=== PATIENT | female | born 1980 | race Caucasian/White ===

== ENCOUNTER 2017-11-24 04:58 | Emergency (ER) | payer MEDICARE, MEDICAID ==
[~2017-11-24] VITALS: Ht 172.7 cm; Wt 63.6 kg
[2017-11-24 05:00] VITALS: BP 129/73; PULSE 88; RESP 16; TEMP 98.2; O2SAT 100
--- NOTE | 2017-11-24 05:34 | PD ---
HPI Chief Complaint: Alcohol/Drug Intoxication Time Seen by Provider: 05:20 Travel History International Travel<30 days: No Contact w/Intl Traveler<30days: No Traveled to known affect area: No History of Present Illness HPI 37 years old female was brought in by EMS for altered mental status. Patient was found unresponsive at local restaurant. Police was called. Patient became responsive after that. Patient denies any drug use. Patient states that she was drinking alcohol last night. Patient was brought in by EMS for evaluation. Upon arrival patient refused any blood test or urine tests or any x-ray or treatment. Patient denies any medical problem now. Patient denies any headache. Patient denies any chest pain or shortness of breath. Patient denies abdominal pain. Patient denies any focal weakness or numbness of extremity. PFSH Past Medical History Medical History: Denies Significant Hx Tetanus Vaccination: Unknown Influenza Vaccination: No ?: Not LMP: 10/2017 : 4 Para: 4 Tubal Ligation: Yes Social History Alcohol Use: Yes Tobacco Use: Yes Substance Use: No Allergies-Medications (Allergen,Severity, Reaction): Coded Allergies: No Known Allergies (Unverified , 11/24/17) Review of Systems General / Constitutional: No: Fever Eyes: No: Visual changes HENT: No: Headaches Cardiovascular: No: Chest Pain or Discomfort Respiratory: No: Shortness of Breath Gastrointestinal: No: Abdominal Pain Genitourinary: No: Dysuria Musculoskeletal: No: Pain Skin: No Rash Neurologic: No: Weakness Psychiatric: No: Depression Endocrine: No: Polydipsia Hematologic/Lymphatic: No: Easy Bruising Physical Exam Narrative GENERAL: Well-nourished, well-developed patient. SKIN: Focused skin assessment warm/dry. HEAD: Normocephalic. EYES: No scleral icterus. No injection or drainage. NECK: Supple, trachea midline. No JVD or lymphadenopathy. CARDIOVASCULAR: Regular rate and rhythm without murmurs, gallops, or rubs. RESPIRATORY: Breath sounds equal bilaterally. No accessory muscle use. GASTROINTESTINAL: Abdomen soft, non-tender, nondistended. MUSCULOSKELETAL: No cyanosis, or edema. BACK: Nontender without obvious deformity. No CVA tenderness. Neurologic exam: Patient is lethargic however answer questions appropriately. Patient moves all extremities well. No obvious focal neurological deficit. Data Data Last Documented VS Vital Signs Date Time Temp Pulse Resp B/P (MAP) Pulse Ox O2 Delivery O2 Flow Rate FiO2 11/24/17 05:00 98.2 88 16 129/73 (91) 100 MDM Medical Decision Making Medical Screen Exam Complete: Yes Emergency Medical Condition: Yes Differential Diagnosis Differential diagnosis including drug-induced mood disorder, intoxication. Narrative Course 37 years old female with transient altered mental status. Patient admitted to alcohol consumption. Patient refused any treatment. Patient refused blood work. Patient will be observed in the ED until she is awake alert oriented 3 and steady on her feet and safely to be discharged. Matty Porter MD Nov 24, 2017 05:34
[2017-11-24 08:13] VITALS: BP 109/69; PULSE 81; RESP 16; O2SAT 100
--- NOTE | 2017-11-24 10:53 | PD ---
Physical Exam Exam Limitations: Intoxication Narrative GENERAL: SKIN: Warm and dry. HEAD: Atraumatic. Normocephalic. EYES: Pupils equal and round. No scleral icterus. No injection or drainage. ENT: No nasal bleeding or discharge. Mucous membranes pink and moist. NECK: Trachea midline. No JVD. CARDIOVASCULAR: Regular rate and rhythm. RESPIRATORY: No accessory muscle use. Clear to auscultation. Breath sounds equal bilaterally. GASTROINTESTINAL: Abdomen soft, non-tender, nondistended. MUSCULOSKELETAL: Extremities without clubbing, cyanosis, or edema. No obvious deformities. NEUROLOGICAL: Awake and alert. No obvious cranial nerve deficits. Motor grossly within normal limits. Five out of 5 muscle strength in the arms and legs. Normal speech. PSYCHIATRIC: Appropriate mood and affect; insight and judgment normal. Data Data Last Documented VS Vital Signs Date Time Temp Pulse Resp B/P (MAP) Pulse Ox O2 Delivery O2 Flow Rate FiO2 11/24/17 12:08 11/24/17 08:13 81 16 100 Room Air 11/24/17 05:00 98.2 Orders Orders Ed Discharge Order (11/24/17 11:01) [facility] Medical Record Reviewed: Yes Supervised Visit with BRENDA: No Narrative Course PATIENT IS A/O X4, SPEAKING CLEARLY, AMBULATING ON HER OWN AND IS ATTEMPTING TO CALL FRIENDS TO PICK HER UP. Diagnosis Primary Impression: INTOXICATION S/P SOBRIETY Patient Instructions: General Instructions Scripts Unable to Obtain Active Prescriptions or Reported Meds Disposition: 01 DISCHARGE HOME Condition: Stable Jose Delarosa MD Nov 24, 2017 10:53
== END 2017-11-24 12:29 | disposition home or self-care (01) ==
LOC: NEPE 04:58
DX: F10.129 Alcohol abuse with intoxication, unspecified (principal); Z72.0 Tobacco use
CPT/HCPCS: 99282